=== PATIENT | female | born 1970 | race Caucasian/White ===

== ENCOUNTER 2017-10-02 21:12 | Emergency (ER) | payer SELFPAY ==
[2017-10-02 21:14] VITALS: BP 107/80; PULSE 84; RESP 20; TEMP 36.6; O2SAT 95; BMI 24.8
--- NOTE | 2017-10-02 21:40 | CT_ITS ---
STUDY: CT ABDOMEN AND PELVIS WITH CONTRAST REASON FOR EXAM: Female, 47 years old. RADIATION DOSAGE (If Supplied By Facility): CTDIvol = ( 7.32 ) mGy, DLP = ( 582.62 ) mGycm TECHNIQUE: Transaxial images were obtained from the dome of the diaphragm to the symphysis pubis without oral contrast. 100ML ml of Isovue 300 contrast was administered. Sagittal and coronal images were reconstructed. Individualized dose optimization techniques were used for this CT. COMPARISON: None. FINDINGS: The visualized lung bases are unremarkable. The visualized portions of the heart are within normal limits. Normal liver. Normal gallbladder and extrahepatic biliary system. Normal spleen. Normal pancreas. Normal bilateral adrenal glands. Normal right kidney. Normal left kidney. Normal visualized stomach. Normal small intestine. Normal colon. The appendix is visualized and appears normal. Normal abdominal aorta. Normal inferior vena cava. Normal retroperitoneum. Normal urinary bladder. Normal visualized uterus. Normal abdominal wall. Normal osseous structures. No fractures. CT/Abdomen/Pelvis W IV Cont ONLY IMPRESSION: Normal enhanced CT of the abdomen and pelvis. Electronically Signed: Julian Wilcox MD at 22:41 EDT , Service support ,
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
[2017-10-02 22:10] VITALS: BP 122/84; PULSE 83; RESP 83; O2SAT 97
[2017-10-02 22:54] LABS: Absolute Lymphocyte Count 1.22 X10^3/ul (0.83-4.51); Absolute Neutrophil Count 12.7 X10^3/uL (2.0-7.7); Basophil# 0.04 X10^3/uL; Basophil% 0.3 % (0-1); Eosinophil# 0.11 X10^3/uL; Eosinophils% 0.7 % (0-5); Hematocrit 41.5 % (37-47); Hemoglobin 14.3 g/dl (12.0-15.0); Lymphocyte # 1.22 X10^3/ul (4.0); Lymphocyte % 7.7 % (19-41); Mean Corp Hgb Conc 34.5 g/gl (32-36); Mean Corpuscular Hgb 33.3 pg (27.0-32.0); Mean Corpuscular Volume 96.5 fL (81-99); Mean Platelet Vol. 11.4 fl (6.2-12.0); Monocyte% 10.7 % (0-10); Neutrophil # 12.72 X10^3/uL (2.7-7.7); Neutrophil % 80.1 % (47-70); POSITIVE COUNT NO; POSITIVE DIFFERENTIAL YES; POSITIVE MORPHOLOGY NO; Platelet Count 237 K/mm3 (150-450); RBC Distribution Width CV 14.5 % (11.6-14.6); RBC Distribution Width SD 49.2 fl (35.1-43.9); White Blood Count 15.9 K/mm3 (4.4-11.0)
[2017-10-02 22:55] LABS: Differential Indicated SCAN CRITERIA MET
[2017-10-02 23:13] VITALS: BP 118/94; PULSE 73; RESP 21; O2SAT 100
[2017-10-02 23:17] LABS: Differential Comment SCANNED
[2017-10-02 23:22] LABS: Anion Gap 11 (5-15); BUN 17 mg/dL (7-18); BUN/Creat Ratio 25.8 RATIO (10-20); Calcium,Total 8.4 mg/dL (8.5-10.1); Chloride 100 mmol/L (98-107); Creatinine, Serum 0.66 mg/dL (0.55-1.02); EST Glomerular Filtration Rate 102 mL/min (>60); Est Glom Filt Rate - Afr Amer 124 mL/min (>60); Estimated Creatinine Clearance 99.71 ml/min; Glucose 109 mg/dL (74-106); Potassium 2.9 mmol/L (3.5-5.1); Sodium Level 136 mmol/L (136-145)
[2017-10-03 00:02] VITALS: BP 122/80; PULSE 70; RESP 16; O2SAT 100
[2017-10-03] MEDS: Morphine 4 MG/ML Syringe IV (00:02)
[2017-10-03] MEDS: Ondansetron 4 MG/2 ML Vial IV (00:03)
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
[2017-10-03 01:15] VITALS: BP 97/72; PULSE 77; RESP 12; TEMP 36.6; O2SAT 94
== END 2017-10-03 01:17 | disposition short-term general hospital (02) ==
LOC: ED 23:10
PROVIDERS: Emergency Provider Emergency Medicine; Family Provider Family Medicine; PCP Family Medicine
DX: S12.110A Anterior displaced Type II dens fracture, initial encounter for closed fracture (principal); S06.9X9A Unspecified intracranial injury with loss of consciousness of unspecified duration, initial encounter; R40.2410 Glasgow coma scale score 13-15, unspecified time; E87.6 Hypokalemia; Z72.0 Tobacco use; V43.53XA Car driver injured in collision with pick-up truck in traffic accident, initial encounter; Y93.I9 Activity, other involving external motion; Y92.410 Unspecified street and highway as the place of occurrence of the external cause; Y99.8 Other external cause status
CPT/HCPCS: 36415; 51702; 70450; 71045; 72125; 74177; 80048; 80320; 85025; 96374; 96375; 99285; Q9967; G0480; J2405

== ENCOUNTER 2025-04-05 08:52 | Emergency (ER) | payer MEDICAID, OTHER, SELFPAY ==
[2025-04-05 08:53] VITALS: BP 155/100; PULSE 106; RESP 22; TEMP 36.3; O2SAT 100
[2025-04-05 09:00] VITALS: O2SAT 100; BMI 36.9
--- NOTE | 2025-04-05 09:12 | RAD_ITS ---
PROCEDURE: CHEST PA AND LATERAL 04/05/2025 REASON FOR EXAM: COUGH TECHNIQUE: Procedure Code: RADCXR Modality: DX Procedure: CHEST PA AND LATERAL COMPARISON: None. FINDINGS: LUNGS AND PLEURA: No focal airspace consolidation. Mild biapical pleural thickening. No pleural effusion or pneumothorax. HEART AND MEDIASTINUM: The heart size and mediastinal contours are normal. BONES: No acute osseous abnormality. Old left posterior rib fractures. RAD/Chest PA and Lateral IMPRESSION: NO ACUTE FINDINGS. Reading Location: [id number]
--- NOTE | 2025-04-05 09:12 | EKG12_ITS ---
Test Reason : Blood Pressure : */* mmHG Vent. Rate : 83 BPM Atrial Rate : 83 BPM P-R Int : 138 ms QRS Dur : 80 ms QT Int : 358 ms P-R-T Axes : 60 64 51 degrees QTcB Int : 420 ms Normal sinus rhythm Normal ECG Confirmed by Dustin Goel ([id number]), ehs specialist CARLOS LOCKHART ([id number]) on 04/06/2025 11:00:56 AM Also confirmed by Dustin Goel ([id number]), ehs specialist CARLOS LOCKHART ([id number]) on 04/07/2025 11:10:40 AM Referred By: Confirmed By: Dustin oGel
[2025-04-05 09:20] VITALS: PULSE 84; RESP 16
[2025-04-05] MEDS: Albuterol 2.5 MG/3 ML VIAL.NEB. INHALATION (09:20)
--- NOTE | 2025-04-05 09:25 | ED.VIS.DYS ---
HPI History of Present Illness Chief Complaint: Cough Narrative Narrative: Chief complaint and HPI: 54-year-old female with past medical history of tobacco abuse presents for evaluation of URI type symptoms. Patient states for the past 3 days she has had a chest cold. She states she has had cough and congestion. No history of COPD or asthma that she knows of. She denies any fever, chills, shortness of breath, chest pain, abdominal pain, nausea, vomiting. Review of systems: See HPI Medications: As listed on the chart Allergies: As listed on the chart PFSH: Per chart Vital signs: As listed on the chart. Reviewed. Physical exam: Gen: A&O x3, NAD Head: Normocephalic, atraumatic Eyes: No sclera icterus, conjunctiva clear, PERRL ENT: TMs clear BL, moist mucous membranes, posterior oropharynx unremarkable, uvula midline, tonsils not enlarged, no tonsillar exudates Neck: Trachea midline, No JVD, Full ROM, No meningismus CV: tachycardic, regular rhythm, no murmurs, no peripheral edema Resp: Lungs CTA BL, with few expiratory wheezes, cough + GI: Abd soft, non-distended, non-tender, no r/r/g Musc: Full ROM, no deformity Skin: Warm, dry, no rash Neuro: Alert, oriented, grossly intact, sensation intact Psych: Cooperative, appropriate mood and affect [facility] Home Medications ?Medication ?Instructions ?Recorded ?Last Taken ?Type albuterol sulfate 90 mcg/actuation 2 puff inhalation Q4H PRN PRN 04/05/25 Unknown Rx aerosol inhaler (Ventolin HFA) Wheezing ##1 prednisone 20 mg tablet 40 mg (2 x 20 mg) PO DAILY 5 days 04/05/25 Unknown Rx #10 tabs Allergy/AdvReac Type Severity Reaction Status Date / Time No Known Allergies Allergy Verified 04/05/25 08:53 Social History Smoking Status: Current every day smoker tobacco type: e-cigarettes EXAM Physical Exam Const Vital Signs: 04/05/25 08:53 04/05/25 09:00 04/05/25 09:20 Temperature 97.3 F L Temperature Source Temporal Pulse Rate 106 H 84 Respiratory Rate 22 H 16 Respiratory Effort Normal Short of Breath Respiratory Depth Normal Respiratory Pattern Normal Normal Blood Pressure 155/100 H Blood Pressure Mean 118 Pulse Ox 100 Oxygen Delivery Method Room Air Room Air 04/05/25 11:09 04/05/25 12:47 Temperature 97.2 F L Temperature Source Pulse Rate 88 80 Respiratory Rate 16 18 Respiratory Effort Respiratory Depth Respiratory Pattern Blood Pressure 123/80 H 134/75 H Blood Pressure Mean 94 94 Pulse Ox 99 98 Oxygen Delivery Method Room Air MDM MDM MDM Narrative Medical decision making narrative: 54-year-old female with past medical history of tobacco abuse presents for evaluation of URI type symptoms. Patient states for the past 3 days she has had a chest cold. She states she has had cough and congestion. No history of COPD or asthma that she knows of. Differential diagnosis includes but is not limited to viral illness, bronchitis, pneumonia, undiagnosed COPD with an exacerbation, electrolyte abnormality. NS bolus, DuoNeb, albuterol, prednisone ordered for symptoms. Basic labs will be obtained including viral panel. EKG and chest x-ray reviewed. No pneumonia. CBC unremarkable without leukocytosis or anemia. BMP unremarkable. On reevaluation, patient's wheezing has improved. Her vitals have improved. Patient is negative for COVID, flu, RSV. Patient's symptoms are likely secondary to viral illness. Will give prednisone and albuterol inhaler for wheezing. Follow-up with primary care physician. She vermin understand the plan. Patient discharged. EKG: Interpreted by me/EM physician: EKG shows normal sinus rhythm without any acute ischemic changes heart rate 83 Diagnostic: Interpreted by me/EM physician: Chest x-ray without consolidation, pneumothorax, cardiomegaly, effusion. Radiology in agreement. Old left posterior rib fractures per radiology. Impression: 1. Viral syndrome with wheezing Lab Data Labs: Laboratory Results - last 24 hr 04/05/25 09:35 WBC 9.3 RBC 4.90 Hgb 14.4 Hct 45.2 MCV 92.2 MCH 29.4 MCHC 31.9 L RDW Std Deviation 44.2 H RDW Coeff of [place] 13.1 Plt Count 256 MPV 12.0 Immature Gran % (Auto) 0.600 Neut % (Auto) 56.6 Lymph % (Auto) 26.4 [place] % (Auto) 12.8 H Eos % (Auto) 3.0 Baso % (Auto) 0.6 Absolute Neuts (auto) 5.3 Absolute Lymphs (auto) 2.47 Nucleated RBC % 0 Sodium 142 Potassium 4.8 Chloride 105 Carbon Dioxide 26.8 Anion Gap 10 BUN 19 Creatinine 0.78 Estim Creat Clear Calc 104.97 Est GFR (MDRD) Non-Af 90 BUN/Creatinine Ratio 24.3 H Glucose 119 H Calcium 9.4 Radiography Diagnostic Testing: Clinical Impression(s) from Imaging Studies Chest X-Ray 04/05/25 09:12 IMPRESSION: NO ACUTE FINDINGS. Reading Location: [id number][NOTE 3] Discharge Plan Triage Chief Complaint: Cough ED Provider: Alex Cadet Dx/Rx/DC Orders Instructions: ED Viral Syndrome (Adult) Prescriptions: New prednisone 20 mg tablet 40 mg PO DAILY 5 Days Qty: 10 0RF albuterol sulfate [Ventolin HFA] 90 mcg/actuation HFA aerosol inhaler 2 puff inhalation Q4H PRN PRN (Reason: Wheezing) Qty: 1 0RF Stand Alone Forms: ED Work / School Excuse Primary Care Provider: Care Physician,No Primary Referrals: Jairo Marquez MD [Med Staff - Active Staff, Family Practice] - 3-5 Days Activity Restrictions/Additional Instructions: Over the counter medication for symptom control. Albuterol as needed for wheezing. Follow-up with your primary care physician. If you do not have one follow-up with the one listed above. Print Language: Greenlandic Disposition Disposition: Home, Self Care Discharge Date/Time: 04/05/25 12:47
[2025-04-05] MEDS: 0.9% Normal Saline (500mL Bag) 500 ML 999 ML IV (09:28)
[2025-04-05 09:46] LABS: Hematocrit 45.2 % (37-47); Hemoglobin 14.4 g/dL (12.0-15.0); Immature Granulocytes Count 0.060 X10^3/uL (0.0-0.0); Mean Corp Hgb Conc 31.9 g/dL (32-36); Mean Corpuscular Volume 92.2 fL (81-99); Mean Platelet Vol. 12.0 fl (6.2-12.0); NRBC Flagged by Analyzer 0 % (0-5); Platelet Count 256 K/mm3 (150-450); RBC Distribution Width CV 13.1 % (11.6-14.6); RBC Distribution Width SD 44.2 fl (35.1-43.9); Red Blood Count 4.90 M/mm3 (4.2-5.4); White Blood Count 9.3 K/mm3 (4.4-11.0)
[2025-04-05 10:10] LABS: Anion Gap 10 (5-15); BUN 19 mg/dL (4-19); BUN/Creat Ratio 24.3 RATIO (10-20); Calcium,Total 9.4 mg/dL (7.6-11.0); Carbon Dioxide 26.8 mmol/L (21.0-32.0); Chloride 105 mmol/L (98-108); Estimated Creatinine Clearance 104.97 ml/min (50-250); Glucose 119 mg/dL (70-99); Potassium 4.8 mmol/L (3.3-5.1)
[2025-04-05 11:09] VITALS: BP 123/80; PULSE 88; RESP 16; O2SAT 99
[2025-04-05 12:47] VITALS: BP 134/75; PULSE 80; RESP 18; TEMP 36.2; O2SAT 98
--- OUTSIDE RECORDS SUMMARY | 2025-04-05 13:15 | XMS RPT_ITS | CCD ---
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 HISTORY: Reason for Exam: cough FINDINGS: Cardiomediastinal contours are within normal limits. No focal consolidation or pulmonary edema. No pleural effusion or visible pneumothorax. Degenerative changes of the visible spine. IMPRESSION: No acute cardiopulmonary process. I have personally reviewed the images of this examination and agree with the resident's findings and interpretation. Interpreted by: Kal Strauss MD Preliminary Report By: Uday Mendez Electronically signed By Kal Strauss MD Dictated Date: 04/04/2023 4:40:31 PM Prelim Date: 04/04/2023 4:41:03 PM Sign Date: 04/04/2023 5:13:30 PM Ordering Provider: CHERYLE BARBA Normal [facility] ([place]) [id number] 04-02-2023 SARS-CoV-2 (COVID-19) RNA DIVINE+probe Ql (Unsp spec) Positive Abnormal Negative [facility] ([place]) Comment on above: Performed By: #### F PHILLIP COVD19 #### [address] [address] SARS-CoV-2 (COVID-19) RNA DIVINE+probe Ql (Unsp spec) Normal [facility] ([place]) Comment on above: Result Comment: Posi tive results are indicative of the presence of SARS-CoV-2 RNA; clinical correlation with patient history and other diagnostic information is necessary to determine patient infection status. Positive results do not rule out bacterial infection or co-infection with other viruses. The agent detected may not be the definite cause of disease. Laboratories within the [facility] and its territories are required to report all positive results to the appropriate public health authorities. Detection of analyte target(s) does not imply that the corresponding virus(es) are infectious or are the causative agents for clinical symptoms. There is a risk of false positive values resulting from cross-contamination by target organisms, their nucleic acids or amplified product, or from non-specific signals in the assay. HidInImage SARS-CoV-2 Assay is a Real-Time reverse-transcriptase polymerase chain reaction (RT-PCR) based qualitative in vitro diagnostic test intended for the qualitative detection of nucleic acid from the SARS-CoV-2 in nasopharyngeal swab specimens collected from individuals suspected of COVID-19 by their healthcare provider. Testing is limited to laboratories certified under the Clinical Laboratory Improvement Amendments of 1988 (CLIA), 42 U.S.C. ?263a, to perform moderate and high complexity tests. COVID-19 Int Performed By: #### Dawson PHILLIP COVD19 #### [address] [address] FLURSVon 04-02-2023 Flu A PCR (AO) Negative Normal Negative [facility] ([place]) Comment on above: Result Comment: Posi tive Results: Positive Flu A/B or RSV for by PCR. Positive test results do not rule out bacterial infection or co-infection with other pathogens. Test results should be interpreted in conjunction with other laboratory and clinical data. Negative Results: Negative for by PCR. Negative test results do not preclude influenza virus or RSV infection and should not be used as the sole basis for diagnosis, treatment, or other management decisions. There is a risk of false negative RSV results when at low concentration and in the presence of co-infection with high concentration of influenza A. Invalid Results: An Invalid result (INV) was obtained. The test was repeated with similar results. REPEAT COLLECTION AND TESTING IS RECOMMENDED. The Mundo Flu A/B & RSV Assay is a real-time polymerase chain reaction (PCR) based qualitative in vitro diagnostic test for the direct detection and differentiation of influenza A virus, influenza B virus, and respiratory syncytial virus (RSV) nucleic acid in nasopharyngeal swab (BROADCAST METEOROLOGIST) specimens from patients with signs and symptoms of respiratory infection in conjunction with clinical and laboratory findings. The test is intended for use as an aid in the differential diagnosis of influenza A virus, influenza B virus, and RSV in humans and is not intended to detect influenza C. Performed By: #### B MP, CBC, ANEU, GFR, BRYANT, W, DIFF, MORPH #### [address] [address] Flu B PCR (AO) Negative Normal Negative [facility] ([place]) Comment on above: Result Comment: Posi tive Results: Positive Flu A/B or RSV for by PCR. Positive test results do not rule out bacterial infection or co-infection with other pathogens. Test results should be interpreted in conjunction with other laboratory and clinical data. Negative Results: Negative for by PCR. Negative test results do not preclude influenza virus or RSV infection and should not be used as the sole basis for diagnosis, treatment, or other management decisions. There is a risk of false negative RSV results when at low concentration and in the presence of co-infection with high concentration of influenza A. Invalid Results: An Invalid result (INV) was obtained. The test was repeated with similar results. REPEAT COLLECTION AND TESTING IS RECOMMENDED. The Mundo Flu A/B & RSV Assay is a real-time polymerase chain reaction (PCR) based qualitative in vitro diagnostic test for the direct detection and differentiation of influenza A virus, influenza B virus, and respiratory syncytial virus (RSV) nucleic acid in nasopharyngeal swab (BROADCAST METEOROLOGIST) specimens from patients with signs and symptoms of respiratory infection in conjunction with clinical and laboratory findings. The test is intended for use as an aid in the differential diagnosis of influenza A virus, influenza B virus, and RSV in humans and is not intended to detect influenza C. Performed By: #### B MP, CBC, ANEU, GFR, MD BRYANTW, DIFF, MORPH #### [address] [place], [place] [address] RSV PCR (AO) Negative Normal Negative [facility] ([place]) Comment on above: Result Comment: Posi tive Results: Positive Flu A/B or RSV for by PCR. Positive test results do not rule out bacterial infection or co-infection with other pathogens. Test results should be interpreted in conjunction with other laboratory and clinical data. Negative Results: Negative for by PCR. Negative test results do not preclude influenza virus or RSV infection and should not be used as the sole basis for diagnosis, treatment, or other management decisions. There is a risk of false negative RSV results when at low concentration and in the presence of co-infection with high concentration of influenza A. Invalid Results: An Invalid result (INV) was obtained. The test was repeated with similar results. REPEAT COLLECTION AND TESTING IS RECOMMENDED. The [employer] Flu A/B & RSV Assay is a real-time polymerase chain reaction (PCR) based qualitative in vitro diagnostic test for the direct detection and differentiation of influenza A virus, influenza B virus, and respiratory syncytial virus (RSV) nucleic acid in nasopharyngeal swab (BROADCAST METEOROLOGIST) specimens from patients with signs and symptoms of respiratory infection in conjunction with clinical and laboratory findings. The test is intended for use as an aid in the differential diagnosis of influenza A virus, influenza B virus, and RSV in humans and is not intended to detect influenza C. Performed By: #### B MP, CBC, ANEU, GFR, ADIFF, MDW, DIFF, MORPH #### [address] [place], [place] [address] LABORATORYOrdered By: Jenny Ruvalcaba on 04-02-2023 FLUAV RNA DIVINE+probe Ql (Upper resp) Negative 1 (04/02/23 8:01 PM) Normal Negative AO Auto Urine SS Comment on above: Interpretive Data: P ositive Results: Positive Flu A/B or RSV for by PCR. Positive test results do not rule out bacterial infection or co-infection with other pathogens. Test results should be interpreted in conjunction with other laboratory and clinical data. Negative Results: Negative for by PCR. Negative test results do not preclude influenza virus or RSV infection and should not be used as the sole basis for diagnosis, treatment, or other management decisions. There is a risk of false negative RSV results when at low concentration and in the presence of co-infection with high concentration of influenza A. Invalid Results: An Invalid result (INV) was obtained. The test was repeated with similar results. REPEAT COLLECTION AND TESTING IS RECOMMENDED. The Mundo Flu A/B & RSV Assay is a real-time polymerase chain reaction (PCR) based qualitative in vitro diagnostic test for the direct detection and differentiation of influenza A virus, influenza B virus, and respiratory syncytial virus (RSV) nucleic acid in nasopharyngeal swab (BROADCAST METEOROLOGIST) specimens from patients with signs and symptoms of respiratory infection in conjunction with clinical and laboratory findings. The test is intended for use as an aid in the differential diagnosis of influenza A virus, influenza B virus, and RSV in humans and is not intended to detect influenza C. FLUBV RNA DIVINE+probe Ql (Upper resp) Negative 2 (04/02/23 8:01 PM) Normal Negative AO Auto Urine SS Comment on above: Interpretive Data: P ositive Results: Positive Flu A/B or RSV for by PCR. Positive test results do not rule out bacterial infection or co-infection with other pathogens. Test results should be interpreted in conjunction with other laboratory and clinical data. Negative Results: Negative for by PCR. Negative test results do not preclude influenza virus or RSV infection and should not be used as the sole basis for diagnosis, treatment, or other management decisions. There is a risk of false negative RSV results when at low concentration and in the presence of co-infection with high concentration of influenza A. Invalid Results: An Invalid result (INV) was obtained. The test was repeated with similar results. REPEAT COLLECTION AND TESTING IS RECOMMENDED. The [employer] Flu A/B & RSV Assay is a real-time polymerase chain reaction (PCR) based qualitative in vitro diagnostic test for the direct detection and differentiation of influenza A virus, influenza B virus, and respiratory syncytial virus (RSV) nucleic acid in nasopharyngeal swab (BROADCAST METEOROLOGIST) specimens from patients with signs and symptoms of respiratory infection in conjunction with clinical and laboratory findings. The test is intended for use as an aid in the differential diagnosis of influenza A virus, influenza B virus, and RSV in humans and is not intended to detect influenza C. RSV RNA DIVINE+probe Ql (Upper resp) Negative 3 (04/02/23 8:01 PM) Normal Negative AO Auto Urine SS Comment on above: Interpretive Data: P ositive Results: Positive Flu A/B or RSV for by PCR. Positive test results do not rule out bacterial infection or co-infection with other pathogens. Test results should be interpreted in conjunction with other laboratory and clinical data. Negative Results: Negative for by PCR. Negative test results do not preclude influenza virus or RSV infection and should not be used as the sole basis for diagnosis, treatment, or other management decisions. There is a risk of false negative RSV results when at low concentration and in the presence of co-infection with high concentration of influenza A. Invalid Results: An Invalid result (INV) was obtained. The test was repeated with similar results. REPEAT COLLECTION AND TESTING IS RECOMMENDED. The [employer] Flu A/B & RSV Assay is a real-time polymerase chain reaction (PCR) based qualitative in vitro diagnostic test for the direct detection and differentiation of influenza A virus, influenza B virus, and respiratory syncytial virus (RSV) nucleic acid in nasopharyngeal swab (BROADCAST METEOROLOGIST) specimens from patients with signs and symptoms of respiratory infection in conjunction with clinical and laboratory findings. The test is intended for use as an aid in the differential diagnosis of influenza A virus, influenza B virus, and RSV in humans and is not intended to detect influenza C. SARS-CoV-2 (COVID-19) RNA DIVINE+probe Ql (Resp) Positive results are indicative of the presence of SARS-CoV-2 RNA; clinical correlation with patient history and other diagnostic information is necessary to determine patient infection status. Positive results do not rule out bacterial infection or co-infection with other viruses. The agent detected may not be the definite cause of disease. Laboratories within the [facility] and its territories are required to report all positive results to the appropriate public health authorities.Detection of analyte target(s) does not imply that the corresponding virus(es) are infectious or are the causative agents for clinical symptoms.There is a risk of false positive values resulting from cross-contamination by target organisms, their nucleic acids or amplified product, or from non-specific signals in the assay.HidInImage SARS-CoV-2 Assay is a Real-Time reverse-transcriptase polymerase chain reaction (RT-PCR) based qualitative in vitro diagnostic test intended for the qualitative detection of nucleic acid from the SARS-CoV-2 in nasopharyngeal swab specimens collected from individuals suspected of COVID-19 by their healthcare provider. Testing is limited to laboratories certified under the Clinical Laboratory Improvement Amendments of 1988 (CLIA), 42 U.S.C. 263a, to perform moderate and high complexity tests. Normal AO Auto Urine SS Office Visit Reporton 11-07- 2023 Office Visit Report [facility] [address] [place] [address] OFFICE VISIT Date of Service: 02/07/23 MR#: [id number] Acct: [id number] Patient: TARSHA BYERS Rep #: [id number] : 1970 Provider: RIAN Bautista Age/Sex: 52/F Location: [facility] Status: Signed Employer Purchased Covid Test Note: Patient here today for Covid Testing, requested by their Employer. Assessment and Plan Assessment and Plan Orders: Orders POC Cepheid Covid, FluAB, RSV 02/07/23 02/20/23 0611 Date Ash MODI Cosigner Signature: Date (if applicable) CC: Normal [facility] Hepatitis B Surface Antibody on 01-04-2023 HEP B Surf Ab Reactive Normal [facility] Comment on above: Result Comment: Non Reactive: Inconsistent with immunity less than <10 mIU/mL Reactive: Consistent with immunity greater than or equal to 10 mIU/mL Performed By: #### L 3890.6200 #### [facility] [address] [place], [address] Mumps Antibody,IgGon 023 MUMPS Ab, IgG 163.0 AU/mL Normal Immune >10.9 [facility] Comment on above: Result Comment: Nega tive <9.0 Equivocal 9.0 - 10.9 Positive >10.9 A positive result generally indicates past exposure to Mumps virus or previous vaccination. Performed By: #### L 509.4015, L3100.3400, L3400.1750, L3100.0539 #### [facility] [address] [place], [address] [facility] EMP Rubeola Titeron 06-1 RUBEOLA Ab, IgG 128.0 AU/mL Normal Immune >16.4 [facility] Comment on above: Result Comment: Nega tive <13.5 Equivocal 13.5 - 16.4 Positive >16.4 Presence of antibodies to Rubeola is presumptive evidence of immunity except when acute infection is suspected. Performed at: [facility] [id number] Drill Operator Pneumatic: Anjel Roach PhD, Phone: [phone] Performed By: #### L 509.4015, L3100.3400, L3400.1750, L3100.0539 #### [facility] [address] [place], [address] CBC, Employeeon 09-21-2022 Absolute Neut Normal 2.0-7.7 [facility] Comment on above: Result Comment: ORDE RED WRONG Performed By: #### L 500.2900, L400.0100, L100.0200 #### [facility] [address] [place], [address] HCT Normal 37-47 [facility] Comment on above: Result Comment: ORDE RED WRONG Performed By: #### L 500.2900, L400.0100, L100.0200 #### [facility] [address] [place], [address] HGB Normal 12.0-15.0 [facility] Comment on above: Result Comment: ORDE RED WRONG Performed By: #### L 500.2900, L400.0100, L100.0200 #### [facility] [address] [place], [address] MCH Normal 27.0-32.0 [facility] Comment on above: Result Comment: ORDE RED WRONG Performed By: #### L 500.2900, L400.0100, L100.0200 #### [facility] [address] [place], [address] MCHC Normal 32-36 [facility] Comment on above: Result Comment: ORDE RED WRONG Performed By: #### L 500.2900, L400.0100, L100.0200 #### [facility] [address] [place], [address] MCV Normal 81-99 [facility] Comment on above: Result Comment: ORDE RED WRONG Performed By: #### L 500.2900, L400.0100, L100.0200 #### [facility] [address] [place], [address] NEUT% Normal 47-70 [facility] Comment on above: Result Comment: ORDE RED WRONG Performed By: #### L 500.2900, L400.0100, L100.0200 #### [facility] [address] [place], [address] NRBC # Normal 0-5 [facility] Comment on above: Result Comment: ORDE RED WRONG Performed By: #### L 500.2900, L400.0100, L100.0200 #### [facility] [address] [place], [address] PLT Normal 150-450 [facility] Comment on above: Result Comment: ORDE RED WRONG Performed By: #### L 500.2900, L400.0100, L100.0200 #### [facility] [address] [place], [address] RBC Normal 4.2-5.4 [facility] Comment on above: Result Comment: ORDE RED WRONG Performed By: #### L 500.2900, L400.0100, L100.0200 #### [facility] [address] [place], [address] RDW CV Normal 11.6-14.6 [facility] Comment on above: Result Comment: ORDE RED WRONG Performed By: #### L 500.2900, L400.0100, L100.0200 #### [facility] [address] [place], [address] RDW SD Normal 35.1-43.9 [facility] Comment on above: Result Comment: ORDE RED WRONG Performed By: #### L 500.2900, L400.0100, L100.0200 #### [facility] [address] [place], [address] WBC Normal 4.4-11.0 [facility] Comment on above: Result Comment: ORDE RED WRONG Performed By: #### L 500.2900, L400.0100, L100.0200 #### [facility] [address] [place], [address] Employee Profileon 3 HDL Normal [facility] Comment on above: Result Comment: ORDE RED WRONG The drugs N-Acetylcysteine and Metamizole may falsely depress this assay. Performed By: #### L 500.2900, L400.0100, L100.0200 #### [facility] [address] [place], [address] TRIG Normal [facility] Comment on above: Result Comment: ORDE RED WRONG The drugs N-Acetylcysteine and Metamizole may falsely depress this assay. Performed By: #### L 500.2900, L400.0100, L100.0200 #### [facility] [address] [place], [address] URIC Normal 2.6-6.0 [facility] Comment on above: Result Comment: ORDE RED WRONG The drugs N-Acetylcysteine and Metamizole may falsely depress this assay. Performed By: #### L 500.2900, L400.0100, L100.0200 #### [facility] [address] [place], [address] ALB Normal 3.2-5.0 [facility] Comment on above: Result Comment: ORDE RED WRONG Performed By: #### L 500.2900, L400.0100, L100.0200 #### [facility] [address] [place], [address] ALK P Normal 45-117 [facility] Comment on above: Result Comment: ORDE RED WRONG Performed By: #### L 500.2900, L400.0100, L100.0200 #### [facility] [address] [place], [address] ALT Normal 13-56 [facility] Comment on above: Result Comment: ORDE RED WRONG Performed By: #### L 500.2900, L400.0100, L100.0200 #### [facility] [address] [place], [address] AST Normal 15-37 [facility] Comment on above: Result Comment: ORDE RED WRONG Performed By: #### L 500.2900, L400.0100, L100.0200 #### [facility] [address] [place], [address] BUN Normal 7-18 [facility] Comment on above: Result Comment: ORDE RED WRONG Performed By: #### L 500.2900, L400.0100, L100.0200 #### [facility] [address] [place], [address] BUN/CRE Normal 10-20 [facility] Comment on above: Result Comment: ORDE RED WRONG Performed By: #### L 500.2900, L400.0100, L100.0200 #### [facility] [address] [place], [address] CA,Total Normal 8.5-10.1 [facility] Comment on above: Result Comment: ORDE RED WRONG Performed By: #### L 500.2900, L400.0100, L100.0200 #### [facility] [address] [place], [address] CHOL Normal 200 [facility] Comment on above: Result Comment: ORDE RED WRONG Performed By: #### L 500.2900, L400.0100, L100.0200 #### [facility] [address] [place], [address] CHOL:HDL Normal [facility] Comment on above: Result Comment: ORDE RED WRONG Performed By: #### L 500.2900, L400.0100, L100.0200 #### [facility] [address] [place], [address] CL Normal 98-107 [facility] Comment on above: Result Comment: ORDE RED WRONG Performed By: #### L 500.2900, L400.0100, L100.0200 #### [facility] [address] [place], [address] CO2 Normal 21.0-32.0 [facility] Comment on above: Result Comment: ORDE RED WRONG Performed By: #### L 500.2900, L400.0100, L100.0200 #### [facility] Laboratory [address] [place], [address] CREAT,SERUM Normal 0.55-1.02 [facility] Comment on above: Result Comment: ORDE RED WRONG Performed By: #### L 500.2900, L400.0100, L100.0200 #### [facility] Laboratory [address] [place], [address] D BILI Normal 0.00-0.30 [facility] Comment on above: Result Comment: ORDE RED WRONG Performed By: #### L 500.2900, L400.0100, L100.0200 #### [facility] Laboratory [address] [place], [address] EST GFR Normal >60 [facility] Comment on above: Result Comment: ORDE RED WRONG Performed By: #### L 500.2900, L400.0100, L100.0200 #### [facility] Laboratory [address] [place], [address] EST GFR - AA Normal >60 [facility] Comment on above: Result Comment: ORDE RED WRONG Performed By: #### L 500.2900, L400.0100, L100.0200 #### [facility] Laboratory [address] [place], [address] GAP Normal 5-15 [facility] Comment on above: Result Comment: ORDE RED WRONG Performed By: #### L 500.2900, L400.0100, L100.0200 #### [facility] Laboratory [address] [place], [address] GLU Normal 74-106 [facility] Comment on above: Result Comment: ORDE RED WRONG Performed By: #### L 500.2900, L400.0100, L100.0200 #### [facility] Laboratory [address] [place], [address] LDH Normal 84-246 [facility] Comment on above: Result Comment: ORDE RED WRONG Performed By: #### L 500.2900, L400.0100, L100.0200 #### [facility] Laboratory [address] [place], [address] LDL Normal 0-130 [facility] Comment on above: Result Comment: ORDE RED WRONG Performed By: #### L 500.2900, L400.0100, L100.0200 #### [facility] Laboratory [address] [place], [address] PHOS Normal 2.5-4.9 [facility] Comment on above: Result Comment: ORDE RED WRONG Performed By: #### L 500.2900, L400.0100, L100.0200 #### [facility] Laboratory [address] [place], [address] Potassium Normal 3.5-5.1 [facility] Comment on above: Result Comment: ORDE RED WRONG Performed By: #### L 500.2900, L400.0100, L100.0200 #### [facility] Laboratory [address] [place], [address] T BILI Normal 0.20-1.00 [facility] Comment on above: Result Comment: ORDE RED WRONG Performed By: #### L 500.2900, L400.0100, L100.0200 #### [facility] Laboratory [address] [place], [address] T PROT Normal 6.4-8.2 [facility] Comment on above: Result Comment: ORDE RED WRONG Performed By: #### L 500.2900, L400.0100, L100.0200 #### [facility] Laboratory [address] [place], [address] VLDL Normal 5-40 [facility] Comment on above: Result Comment: ORDE RED WRONG Performed By: #### L 500.2900, L400.0100, L100.0200 #### [facility] Laboratory [address] [place], [address] Employee Profile Normal 136-145 [facility] Comment on above: Result Comment: ORDE RED WRONG Performed By: #### L 500.2900, L400.0100, L100.0200 #### [facility] Laboratory [address] [place], [address] Hepatitis B Surf AB - EMPon 09-21-2022 HEP B Surf Ab Non-Reactive Normal [facility] Comment on above: Result Comment: Non Reactive: Inconsistent with immunity less than <10 mIU/mL Reactive: Consistent with immunity greater than or equal to 10 mIU/mL Performed By: #### L 509.4015, L3100.3400, L3400.1750, L3100.0539 #### [facility] Laboratory [address] [place], [address] Rubella IgG [facility] EM[employer]OY[employer]on 0 09-21-2022 Rubella IgG Reactive Normal Nonreactive [facility] Comment on above: Result Comment: Anti body Results Interpretation of Immune Status Non Reactive Presumed Non-Immune Equivocal Equivocal Reactive Presumed Immune Performed By: #### L 509.4015, L3100.3400, L3400.1750, L3100.0539 #### [facility] Laboratory [address] [place], [address] Urinalysis, Employeeon 09-21 BILIRUBIN URINE Normal Negative [facility] Comment on above: Result Comment: ORDE RED WRONG Performed By: #### L 500.2900, L400.0100, L100.0200 #### [facility] Laboratory [address] [place], [address] Clarity (U) Normal Clear [facility] Comment on above: Result Comment: ORDE RED WRONG Performed By: #### L 500.2900, L400.0100, L100.0200 #### [facility] Laboratory [address] [place], [address] Color (U) Normal Yellow [facility] Comment on above: Result Comment: ORDE RED WRONG Performed By: #### L 500.2900, L400.0100, L100.0200 #### [facility] Laboratory [address] [place], [address] GLUCOSE, UR Normal Normal [facility] Comment on above: Result Comment: ORDE RED WRONG Performed By: #### L 500.2900, L400.0100, L100.0200 #### [facility] Laboratory [address] [place], [address] KETONE UR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 patient was alert and appeared to be in no acute distress with stable vitalsigns. Skin was warm, dry and intact. Head is normocephalic, atraumatic. Eyes: Pupilsare equal and reactive to light with normal conjunctivae. ENT: The oral mucosa is moist.Heart is a regular rate and rhythm. GCS was 15. No signs of basilar skull fracture.Lungs were clear. She did have no pain at the elbow. No swelling at the elbow. Normalrange of motion. She had decreased range of motion at the wrist with anatomical snuffboxtenderness. There is no obvious deformity. She had some mild diffuse tenderness in thehand as well with no swelling. She had normal distal sensation, capillary refill. She hadgrip strength decreased due to pain in the hand and the wrist on the left side.EMERGENCY DEPARTMENT CLINICAL COURSEThe patient remained hemodynamically stable, nonseptic and nontoxic throughout the entireED course. We did get a left wrist and left hand x-ray. This did not show any acutefracture. Because of the patient's anatomical snuffbox tenderness, I placed the patient sujey thumb spica splint. At this point I am going to give her prescription for [place] to gohome with. She is to follow up with primary care. Return if symptoms worsen or if newsymptoms develop.IMPRESSIONLeft wrist sprain.DISPOSITIONThe patient will be discharged home. 08/31/17 1046 JOYCE ROBLEDO D.O.cc: JOYCE VERDIN D.O. << Signature on File>> Reported By: JOYCE VERDIN D.O. Signed By: JOYCE VERDIN D.O.Tests performed at:[address] [phone] Normal [facility] HAND 3 VIEWSon 08-23-2017 HAND [address] [address]Nsgx: TARSHA BYERS SPhys: JOYCE VERDIN D.O.: [birth year] Age: 47 Sex: FAcct: [id number] Loc: EDExam Date: 08/23/17 Status: REG ERRadiology No.: [id number] Number: [id number] # Type/[id number] RAD / HAND 3 VIEWS LTPROCEDURE: Left and radiographs.HISTORY: Pain after injury.COMPARISON: NoneFINDINGS: 3 views obtained. No visible fracture or dislocation. The jointspaces are maintained. No bony lesions are identified. Soft tissues areunremarkable.IMPRESSI ON:No visible fracture or dislocation.Professional interpretation provided by [facility] [place] [address].Thank you for this referral.< >Reported By: EPYTON FONTENOT M.D.Signed In NovaPro By: PEYTON FONTENOT M.D. << Signature on File>> Reported By: PEYTON FONTENOT M.D. Signed By: PEYTON FONTENOT M.D.Tests performed at:[address] [phone] Normal [facility] WRIST 3+VIEWSon 08-23-2017 WRIST 3+VIEWS [address] [address]Abhf: TARSHA BYERS SPhys: JOYCE VERDIN D.O.: [birth year] Age: 47 Sex: FAcct: [id number] Loc: EDExam Date: 08/23/17 Status: REG ERRadiology No.: [id number] Number: [id number] # Type/[id number] RAD / WRIST 3+VIEWS LTPROCEDURE: Left wrist radiographs.HISTORY: Pain after injury.COMPARISON: NoneFINDINGS: 4 views obtained. No visible fracture or dislocation. The jointspaces are maintained. No bony lesions are identified. Soft tissues areunremarkable.IMPRESSI ON:No visible fracture or dislocation.Professional interpretation provided by [facility] [place] [address].Thank you for this referral. A< >Reported By: PEYTON FONTENOT M.D.Signed In NovaPro By: PEYTON FONTENOT M.D. << Signature on File>> Reported By: PEYTON FONTENOT M.D. Signed By: PEYTON FONTENOT M.D.Tests performed at:[address] [phone] Normal [facility] Vital Signs Date Time Vital Sign Value Performing Clinician Faci beatriz 04-02-2023 18:51-0500 Body temperature 99.68 [degF] JOSUE NICHOLS MD [facility] 04-02-2023 18:51-0500 Body weight 93 kg JOSUE NICHOLS MD [facility] 04-02-2023 18:51-0500 Diastolic Blood Pressure Non-Invasive 80 mm[Hg] JOSUE NICHOLS MD [facility] 04-02-2023 18:51-0500 Heart rate 92 /min JOSUE NICHOLS MD [facility] 04-02-2023 18:51-0500 Respiratory rate 16 /min JOSUE NICHOLS MD [facility] 04-02-2023 18:51-0500 Systolic Blood Pressure Non-Invasive 120 mm[Hg] JOSUE NICHOLS MD [facility] Encounters Encounter Date Encounter Type Care Provider Facility Start: 05-04-2024 End: 05-04-2024 ambulatory EMIL PARKER [facility] Start: 01-31-2024 End: 01-31-2024 ambulatory [facility] [place] Start: 01-31-2024 End: 01-31-2024 Encounter for general adult medical examination without abnormal findings [facility] [place] Start: 04-04-2023 End: 04-04-2023 Emergency department patient visit DR CHERYLE BARBA MD Facility:[facility] Start: 04-02-2023 End: 04-02-2023 Emergency department patient visit JOSUE NICHOLS MD [facility] Start: 02-07-2023 End: 02-07-2023 ambulatory Ash MODI Facility:[facility] Start: 01-04-2023 ambulatory No Primary Car e Physician Facility:[facility] Start: 09-21-2022 ambulatory Jairo Marquez Facility:[facility] Start: 02-21-2022 ambulatory Smith POE RN.CASSANDRA, GLYNN Work Phone: Internal Medicine [facility] Start: 02-10-2022 Refill Smtih POE RN.CASSANDRA, GLYNN Work Phone: [facility] [place] Comment on above: Refill Request Start: 08-10-2020 End: 08-10-2020 Subsequent hospital visit by physician Xr [facility] Work Phone: Radiology Comment on above: Chronic neck pain [M 54.2, G89.29] Start: 04-02-2020 Emergency department patient visit JOSÉ [facility] Start: 03-11-2018 Patient encounter procedure Albert DawsonArmaan Miller Facility:[facility] Start: 02-11-2018 End: 02-12-2018 Patient encounter procedure Albert DawsonArmaan Kimyat Facility:[facility] Start: 01-06-2018 End: 01-07-2018 Patient encounter procedure Albert DawsonArmaan Kimyat Facility:[facility] Start: 01-02-2018 End: 01-03-2018 Patient encounter procedure Albert DawsonArmaan Kimyat Facility:[facility] Start: 12-12-2017 Patient encounter procedure Albert DawsonArmaan Kimyat Facility:[facility] Start: 12-09-2017 End: 12-09-2017 Patient encounter procedure HILARIO ZOLTAN Facility:[facility] Start: 11-20-2017 End: 11-20-2017 Patient encounter procedure HILARIO ZOLTAN Facility:[facility] Start: 11-14-2017 Patient encounter procedure Albert DawsonArmaan Kimyat Facility:[facility] Start: 10-28-2017 End: 10-28-2017 Patient encounter procedure HILARIO ZOLTAN Facility:[facility] Start: 10-24-2017 End: 10-24-2017 Patient encounter procedure Albert DawsonArmaan Kimyat Facility:[facility] Start: 10-08-2017 End: 10-14-2017 Evaluation and management of inpatient Ablert Miller Facility:[facility] Start: 10-03-2017 End: 10-05-2017 Evaluation and management of inpatient BRENNA BARBER Facility:[facility] Start: 08-23-2017 End: 08-23-2017 Emergency department patient visit JOYCE VERDIN Facility:[facility] Procedures Date Procedure Procedure Detail Performing Clinician Start: 08-10-2020 Radex spine cervical 4 or [address] APRN.BRINEYARD SUPERVISOR, DNP Work Phone: Plan of Treatment Date Care Activity Detail Author Start: 12-15-2023 Covid-19 Vaccine () Covid-19 Vaccine () [facility] Start: 12-15-2023 Influenza vaccination Influenza Vacc ine (#1) [facility] Start: 12-14-2021 Influenza vaccination INFLUENZA (#1) [facility] Start: 07-02-2021 SHINGRIX VACCINE (1 of 2) SHINGRIX VACCINE (1 of 2) [facility] Start: 04-15-2021 DEPRESSION ASSESSMENT DEPRESSION ASS ESSMENT [facility] Start: 10-05-2020 DIABETES SCREEN DIABETES SCREEN [facility] Start: 10-05-2020 Diabetes Screening Diabetes Screenin g [facility] Start: 07-02-2016 COLOGUARD (FIT-DNA) COLOGUARD (FIT-D NA) [facility] Start: 07-02-2016 Colonoscopy COLONOSCOPY [facility] Start: 07-02-2016 COLORECTAL CANCER SCREENING COLORECTAL CANCER SCREENING [facility] Start: 07-02-[address] COLONOGRAPHY [facility] Start: 07-02-2016 FECAL OCCULT BLOOD FECAL OCCULT BLOO D [facility] Start: 07-02-2016 [facility] Start: 07-02-2016 LIPID SCREEN LIPID SCREEN [facility] Start: 07-02-2016 Screening for malign ant neoplasm of colon [facility] Start: 07-02-2016 [facility] Start: 2011 Mammography MAMMOGRAM [facility] Start: 2011 Screening for malign ant neoplasm of breast Mammogram Screening [facility] Start: 07-02-2001 HPV TESTING HPV TESTING [facility] Start: 07-02-1992 PAP TESTING PAP TESTING [facility] Start: 07-02-1992 Screening for malign ant neoplasm of cervix Cervical Cancer Screening [facility] Start: 07-02-1990 Hepatitis B Vaccine (1 of 3 - 19+ 3-dose series) Hepatitis B Vaccine (1 of 3 - 19+ 3-dose series) [facility] Start: 07-02-1990 Urine microalbumin profile [facility] Start: 07-02-1989 Anxiety Screening Anxiety Screening [facility] Start: 07-02-1989 Depression Screening Depression Scre ening [facility] Start: 07-02-1989 HEPATITIS C SCREENING HEPATITIS C [facility] Start: 07-02-1989 Hepatitis C screening Hepatitis C [facility] Start: 07-02-1989 HIV SCREENING HIV SCREENING [facility] Start: 07-02-1989 HIV screening HIV Screening [facility] Start: 07-02-1977 PNEUMOCOCCAL (1 - PCV) PNEUMOCOCCAL (1 - PCV) [facility] Start: 07-02-1977 Pneumococcal vaccination Pneum ococcal Vaccine (1 of 2 - PCV) [facility] Start: 01-03-1972 COVID-19 VACCINE (#1) COVID-19 VACCI NE (#1) [facility] Start: 1971 HEPATITIS B (1 of 3 - 3-dose series) HEPATITIS B (1 of 3 - 3-dose series) [facility] End: 03-23-2023 Screening mammography bi 2-view breast inc cad RUBÉN SCREENING Radiology Routine Encounter for screening mammogram for breast cancer 1 Occurrences starting 02/21/2022 until 03/23/2023 [facility] Work Phone: Comment on above: 1 Occurrences starti ng 02/21/2022 [facility] Date Payer Category Payer Medicaid [id number] 2022 Self-pay 2021 Unknown [employer] PPO [id number] 2021-2022 [address] [place] [address] PPO [id number] 2021 Medicaid [id number] 1971 Unknown [id number] 1971 Unknown [id number] 1971 Unknown [id number] 1971 Unknown [id number] 1971 Unknown [id number] Self-pay [id number] Unknown [id number] Unknown [id number] Unknown [id number] Social History Date Type Detail Facility Start: 10-03-2017 [facility] History of tobacco use Cigarette Smoker [facility] Start: 10-03-2017 End: 03-23-2020 Cigarettes smoked current (pack per day) - Reported 1 [facility] Start: 10-03-2017 Tobacco use and exposure Smokeless tobacco non-user [facility] Start: 08-10-2020 End: 05-30-2021 Alcohol intake Current drinker of alcohol (finding) [facility] Start: 10-28-2017 [facility] Start: 1970 Sex Assigned At Not on file [facility] Start: 04-02-2023 Tobacco smoking status Heavy t obacco smoker (finding) [facility] Start: 1970 Sex Assigned At Female A [facility] Start: 03-23-2020 End: 08-10-2020 Tobacco use panel [facility] Adult Depression Screening Assessment 1 [facility] Start: 09-15-2022 Gender identity Identifies as female gender (finding) [facility] Start: 09-15-2022 Sexual orientation Heterosexual (campbell jahaira) [facility] Start: 07-11-2020 End: 08-10-2020 Exposure to SARS-CoV-2 (event) Not sure [facility] Functional Status Date Assessment Result Facility 04-02-2023 Functional Status Assistive Device None A [facility] 04-02-2023 Functional Status Standard Safet y ID band on, Call device within reach, Bed in low position, Wheels locked, Bedside Cart Locked, Safety level maintained [facility] Mental Status Date Assessment Result Facility 04-02-2023 Mental Status Orientation Oriented x 4 [facility] 04-02-2023 Mental Status [facility] Discharge instructions 04-02-2023 Note Date & Type Note Facility 04-02-2023 Hospital Discharg e instructions Patient Education 04/02/2023 19:56:23 Viral Syndrome (Adult) Viral Syndrome (Adult) A viral illness may cause a number of symptoms such as fever. Other symptoms depend on the part of the body that the virus affects. If it settles in your nose, throat, and lungs, it may cause cough, sore throat, congestion, runny nose, headache, earache and other ear symptoms, or shortness of breath. If it settles in your stomach and intestinal tract, it may cause nausea, vomiting, cramping, and diarrhea. Sometimes it causes generalized symptoms like aching all over, feeling tired, loss of energy, or loss of appetite. A viral illness usually lasts anywhere from several days to several weeks, but sometimes it lasts longer. In some cases, a more serious infection can look like a viral syndrome in the first few days of the illness. You may need another exam and additional tests to know the difference. Watch for the warning signs listed below for when to seek medical advice. Home care Follow these guidelines for taking care of yourself at home: If symptoms are severe, rest at home for the first 2 to 3 days. Stay away from cigarette smoke - both your smoke and the smoke from others. You may use [id number] acetaminophen or ibuprofen for fever, muscle aching, and headache, unless another medicine was prescribed for this. If you have chronic liver or kidney disease or ever had a stomach ulcer or gastrointestinal bleeding, talk with your healthcare provider before using these medicines. No one who is younger than 18 and ill with a fever should take aspirin. It may cause severe disease or . Your appetite may be poor, so a light diet is fine. Avoid dehydration by drinking 8 to 12, 8-ounce glasses of fluids each day. This may include water; orange juice; lemonade; apple, grape, and cranberry juice; clear fruit drinks; electrolyte replacement and sports drinks; and decaffeinated teas and coffee. If you have been diagnosed with a kidney disease, ask your healthcare provider how much and what types of fluids you should drink to prevent dehydration. If you have kidney disease, drinking too much fluid can cause it build up in the your body and be dangerous to your health. Jhnt-aou-hwyjtov remedies won't shorten the length of the illness but may be helpful for symptoms such as cough, sore throat, nasal and sinus congestion, or diarrhea. Don't use decongestants if you have high blood pressure. Follow-up care Follow up with your healthcare provider if you do not improve over the next week. Call 911 Call 911 if any of the following occur: Convulsion Feeling weak, dizzy, or like you are going to faint Chest pain, or more than mild shortness of breath When to seek medical advice Call your healthcare provider right away if any of these occur: Cough with lots of colored sputum (mucus) or blood in your sputum Chest pain, shortness of breath, wheezing, or trouble breathing Severe headache; face, neck, or ear pain Severe, constant pain in the lower right side of your belly (abdominal) Continued vomiting (can t keep liquids down) Frequent diarrhea (more than 5 times a day); blood (red or black color) or mucus in diarrhea Feeling weak, dizzy, or like you are going to faint Extreme thirst Fever of 100.4 F (38 C) or higher, or as directed by your healthcare provider [id number] [employer]. [address] [place] [address]. All rights reserved. This information is not intended as a substitute for professional medical care. Always follow your healthcare professional's instructions. Follow Up Care 04/02/2023 18:49:34 With:Follow up with primary care provider Address:Unknown When:3-5 days Comments:Follow-up as needed if symptoms or not improving.Quarantine at home until you get the results of the viral testing.Push fluids and rest.Vaporizer at bedside.Use Tylenol, Advil or Aleve for pain and fever as needed.Use syrk-szz-gorjasb cough and cold medicines for symptomatic relief as needed.Return to the ED if symptoms worsen. With:Call Physician Referral Address:Unknown When:3-5 days [facility] Emergency department Discharge summary 04-02-2023 Note Date & Type Note Facility 04-02-2023 Emergency department Discharge summary Discharge Instructions Thank you for allowing [facility] to assist you with your healthcare needs. The following is important discharge information regarding your hospital visit. Diagnosis from Today's Visit Back pain Headache What to Do Next Instructions from Your Care Team No qualifying data available. Post Acute Orders No qualifying data available. You Need to Schedule the Following Appointments Follow Up with Follow up with primary care provider When Within 3-5 days Why: Follow-up as needed if symptoms or not improving. Quarantine at home until you get the results of the viral testing. Push fluids and rest. Vaporizer at bedside. Use Tylenol, Advil or Aleve for pain and fever as needed. Use pllx-ehj-yquuqxr cough and cold medicines for symptomatic relief as needed. Return to the ED if symptoms worsen. Follow Up with Call Physician Referral When Within 3-5 days Allergies No Known Medication Allergies Medications Please ask your primary doctor or pharmacist before taking any other medication not listed, including over the counter drugs, herbal medications, vitamins and or supplements as they may interact with your home medications. Please take this list to your next doctor s visit. Bring all medications you take, including over the counter medications, herbals and other supplements with you to your doctor s visit. Patients and families are reminded to discard old lists and to update any records with all medication providers or retail pharmacies. Education Materials Viral Syndrome (Adult) A viral illness may cause a number of symptoms such as fever. Other symptoms depend on the part of the body that the virus affects. If it settles in your nose, throat, and lungs, it may cause cough, sore throat, congestion, runny nose, headache, earache and other ear symptoms, or shortness of breath. If it settles in your stomach and intestinal tract, it may cause nausea, vomiting, cramping, and diarrhea. Sometimes it causes generalized symptoms like aching all over, feeling tired, loss of energy, or loss of appetite. A viral illness usually lasts anywhere from several days to several weeks, but sometimes it lasts longer. In some cases, a more serious infection can look like a viral syndrome in the first few days of the illness. You may need another exam and additional tests to know the difference. Watch for the warning signs listed below for when to seek medical advice. Home care Follow these guidelines for taking care of yourself at home: If symptoms are severe, rest at home for the first 2 to 3 days. Stay away from cigarette smoke - both your smoke and the smoke from others. You may use sdeb-gyh-xmzoicf acetaminophen or ibuprofen for fever, muscle aching, and headache, unless another medicine was prescribed for this. If you have chronic liver or kidney disease or ever had a stomach ulcer or gastrointestinal bleeding, talk with your healthcare provider before using these medicines. No one who is younger than 18 and ill with a fever should take aspirin. It may cause severe disease or . Your appetite may be poor, so a light diet is fine. Avoid dehydration by drinking 8 to 12, 8-ounce glasses of fluids each day. This may include water; orange juice; lemonade; apple, grape, and cranberry juice; clear fruit drinks; electrolyte replacement and sports drinks; and decaffeinated teas and coffee. If you have been diagnosed with a kidney disease, ask your healthcare provider how much and what types of fluids you should drink to prevent dehydration. If you have kidney disease, drinking too much fluid can cause it build up in the your body and be dangerous to your health. Yifl-cdo-rjldcdb remedies won't shorten the length of the illness but may be helpful for symptoms such as cough, sore throat, nasal and sinus congestion, or diarrhea. Don't use decongestants if you have high blood pressure. Follow-up care Follow up with your healthcare provider if you do not improve over the next week. Call 911 Call 911 if any of the following occur: Convulsion Feeling weak, dizzy, or like you are going to faint Chest pain, or more than mild shortness of breath When to seek medical advice Call your healthcare provider right away if any of these occur: Cough with lots of colored sputum (mucus) or blood in your sputum Chest pain, shortness of breath, wheezing, or trouble breathing Severe headache; face, neck, or ear pain Severe, constant pain in the lower right side of your belly (abdominal) Continued vomiting (can t keep liquids down) Frequent diarrhea (more than 5 times a day); blood (red or black color) or mucus in diarrhea Feeling weak, dizzy, or like you are going to faint Extreme thirst Fever of 100.4 F (38 C) or higher, or as directed by your healthcare provider [phone] [employer]. [address] [place] [address], [place] [address]. All rights reserved. This information is not intended as a substitute for professional medical care. Always follow your healthcare professional's instructions. Additional Information VACCINATE! IT SAVES LIVES! Members of the community who have not yet received the COVID-19 vaccine and would like to receive it can visit one of [facility] vaccine clinics. There are many vaccine clinic locations within the [facility]. For locations and available times, please visit [email or web address].g [email or web address] It is important to note that some COVID mobile vaccine clinics are held outdoors and may be canceled in rainy or stormy conditions. To learn more about pediatric vaccinations (ages 5-11), we invite you to visit the [facility] webpage. [email or web address] [email or web address]-Qckduuldlqc-[email or web address] yklk-[email or web address]-Vqetidiuy.html To learn more about the COVID-19 vaccine, we invite you to visit the CDC website for a list of frequently asked questions. https://www.cdc.gov/coronavirus/2 019-ncov/vaccines/faq.html [email or web address] Patient Portal Access Instructions: Stay connected with your healthcare team and access your personal medical information anytime with the [email or web address] Patient Portal. If you would like a full copy of your medical records please contact the [facility] Medical Records Department Saturday through Saturday between 8a.m. and 4:30p.m. Please follow the directions below to access the portal: 1.Access the email account you provided upon registration to the hospital.2.Look for an invitation email from [facility].3.Open the email and access the invitation link: Accept Invitation to [facility]4.Fill in the required roth to create your account. Sign into [email or web address] with your username and password that you created in the above steps to stay up to date. You can then view a summary of results, a summary of your visits, and the ability to download your summaries to your computer or send the information securely to a physician. Remember that your healthcare information is confidential, so carefully consider who you will allow to register on the [email or web address] Patient Portal for access to your information. You can also access the [facility] Patient Portal on the [employer]. Simply click on Health Records under Health Data and then click on the [facility] logo. HOW TO SAFELY DISPOSE OF PRESCRIPTION MEDICATIONS Please use one of the following methods to safely dispose of your unused medications. 1.Use a drug disposal kit: the drug disposal pouch allows you to safely discard your old and unused drugs. Ask your nurse to give you one when you are discharged.2.Visit a local take-back location: Many local pharmacies and police departments have programs that collect old and unwanted prescription drugs. Call your local pharmacy or go to http://GIGAS.[employer]/3B3Zu7s to find one close to you.3.Make use of household items: Use cat litter or old coffee grounds to dispose medications if other options are not available. Mix your drugs with these household products, seal them in an airtight container and throw it into the garbage. Call [facility]: [phone] to be sure your drugs can be disposed of in this way. Some medicines may require a different approach.4.Never flush your medications down the toilet. IF YOU HAVE BEEN PRESCRIBED AN OPIOIDS FOR PAIN If you have been prescribed an opioid (such as hydrocodone, oxycodone or morphine), it is critical to understand the possible side effects and risks of opioid pain medications. Even when taken as directed, opioids can have several side effects including: Tolerance, meaning you might need to take more of a medication for the same pain relief. Nausea, vomiting and/or constipation. Sleepiness, dizziness, dry mouth, confusion, depression or itching. Physical dependence, meaning you have withdrawal symptoms when a medication is stopped ? this can develop within a few days. KNOW YOUR RESPONSIBILITIES It is important to know exactly how much and how often to take the opioid pain medications you are prescribed. Never take opioids in higher amounts or more often than prescribed. Do not combine opioids with alcohol or other drugs that cause drowsiness, such as benzodiazepines, also known as benzos, including diazepam and alprazolam, muscle relaxants or sleep aids. Never sell or share prescription opioids. This is illegal. Store opioids in a secure place and out of reach of others (including children, family, friends and visitors). The last page(s) of this document has been signed and retained as a CHART COPY Signatures Patient Education Materials Viral Syndrome (Adult) Medication Leaflets My discharge plan and instructions have been reviewed and explained to me and I,KINYARWANDA, SHENA understand my current condition and have read and understand these discharge instructions. I have received a written copy of the plan/instructions. If I have questions, I am aware that I should contact my doctor. 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 Spoke with pt and she was not aware [address] was no longer here. Transferred to accounts officer to get an apt to establish care with a provider. Pt has been scheduled for 03-10-22. Pt using medication for neck. 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 Patient has been identified by name and date of : Yes Patient phones for refill(s): Requested Prescriptions Pending Prescriptions Disp Refills cyclobenzaprine (FLEXERIL) 5 mg tablet [Pharmacy Med Name: Cyclobenzaprine HCl 5 MG Oral Tablet] 45 tablet 0 Sig: Take 1 tablet by mouth three times daily as needed Date of last office visit in primary care: 08/10/20 next apt 03/10/22 Last 2 Encounter Wt Readings: Date: Wt: 05/30/2021 92.6 kg (204 lb 3.2 oz) 08/10/2020 84.8 kg (187 lb) Previous labs/tests for medication: Not applicable Thank you. Dorota Baker LPN documented in this encounter [facility] History of Present illness Narrative 08-10-2020 Jodee Alarcon RT(R) - 08/10/2020 10:20 AM EDT Note Date & Type Note Facility 08-10-2020 History of Presen t illness Narrative Radiology Service Progress Note PATIENT NAME: Tarsha Byers DATE OF SERVICE: August 10, 2020 TIME: 10:37 AM PATIENT IDENTITY VERIFICATION COMPLETED USING TWO (2) IDENTIFIERS: Name and Date of confirmed by patient verbally. FALL SCREENING: Has the patient had 2 falls in the last year or 1 fall with injury or currently using an Ambulatory Assistive Device (Walker, Cane, Wheelchair, Crutches, etc.)? No PATIENT GENDER DATA: Female. status: : No status: NO. PATIENT RELEVANT IMPLANT DATA REVIEWED: Not Applicable RADIOLOGY DEPARTMENT: General X-ray: Exam(s) Completed: Spine X-Ray(s): Cervical AP / LAT / OBL and Thoracic PERIPHERAL IV DATA: Not applicable SIGNED BY: RT Rakan(R) August 10, 2020 10:37 AM documented in this encounter [facility] Evaluation + Plan note Note Date & Type Note Facility Evaluation + Plan note No data available for this section [facility] Evaluation note Note Date & Type Note Facility Evaluation note Diagnosis Chronic neck pain Cervicalgia Cervical radiculopathy Brachial neuritis or radiculitis nos documented in this encounter [facility] Evaluation note Note Date & Type Note Facility Evaluation note Diagnosis Encounter for screening mammogram for breast cancer documented in this encounter [facility] Evaluation note Note Date & Type Note Facility Evaluation note Diagnosis Chronic neck pain Cervicalgia Cervical radiculopathy Brachial neuritis or radiculitis nos documented in this encounter [facility] Reason for referral (narrative) Diagnostic Procedure Only (Routine) - Pending Review Note Date & Type Note Facility Reason for referral (narrati ve) Specialty Diagnoses / Procedures Referred By Patrick vidal Referred To Contact [facility] Diagnoses Encounter for screening mammogram for breast cancer Procedures RUBÉN SCREENING SCREENING MAMMOGRAPHY BI 2-VIEW BREAST INC Smith Morrison APRN.CNP, DNP [address] [place] [address] [facility] [address] [place] [address] Referral ID Status Reason Start Date Expiration Date Visits Requested Visits Authorized [id number] Pending Review Auto-Generat ed Referral 02/21/2022 03/23/2023 1 1 [facility] Summary Purpose Family History No Family History Records FoundNo Family History Records FoundNo Family History Records FoundNo Family History Records FoundNo Family History Records Found No data available for this section No Family History Records FoundNo Family History Records FoundNo Family History Records Found Advance Directives No Advanced Directives Records FoundDocuments on File Type Date Recorded 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 Advance Directive(s) 10/18/2017 10:36 AM Advance Directive(s) 10/15/2017 9:29 AM Documents on File Type Date Recorded 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 Advance Directive(s) 10/18/2017 10:36 AM Advance Directive(s) 10/15/2017 9:29 AM Additional Source Comments INFORMATION SOURCE (unrecogn ized section and content) DATE CREATED AUTHOR 10/01/2017 [facility] DATE CREATED AUTHOR AUTHOR'S ORGANIZ ATION 04/25/2018 [facility] DATE CREATED AUTHOR AUTHOR'S ORGANIZ ATION 12/23/2019 [facility] DATE CREATED AUTHOR AUTHOR'S ORGANIZ ATION 04/03/2020 [facility] DATE CREATED AUTHOR AUTHOR'S ORGANIZ ATION 02/26/2023 [facility] DATE CREATED AUTHOR AUTHOR'S ORGANIZ ATION 09/19/2023 [facility] ([place]) DATE CREATED AUTHOR AUTHOR'S ORGANIZ ATION 05/12/2024 [facility] DATE CREATED AUTHOR AUTHOR'S ORGANIZ ATION 05/12/2024 [facility] Source Comments (unrecognize d section and content) In the event this informatio n is protected by the Federal Confidentiality of Alcohol and Drug Abuse Patient Records regulations: The Federal rules restrict any use of the information to criminally investigate or prosecute any alcohol or drug abuse patient.[facility] the event this information is protected by the Federal Confidentiality of Alcohol and Drug Abuse Patient Records regulations: The Federal rules restrict any use of the information to criminally investigate or prosecute any alcohol or drug abuse patient.[facility] the event this information is protected by the Federal Confidentiality of Alcohol and Drug Abuse Patient Records regulations: The Federal rules restrict any use of the information to criminally investigate or prosecute any alcohol or drug abuse patient.[facility] Reason for Visit (unrecogniz ed section and content) Reason Comments Refill Request Care Teams (unrecognized sec tion and content) Personal Health Coach Relationship Specialty Start Date End Date [address] APRN.CNP, DNP [address] [place], [place] [id number] PCP - General Family Medicine 02/20/21 Personal Health Coach Relationship Specialty Start Date End Date [address] APRN.CNP, DNP [address], [place] [phone] PCP - General Family Medicine 02/20/21 FOR RECORDS PERTAINING TO PATIENTS WHO ARE OR HAVE BEEN ENROLLED IN A CHEMICAL DEPENDENCY/SUBSTANCEABUSE PROGRAM, SOME INFORMATION MAY BE OMITTED. This clinical summary was aggregated from multiple sources. Caution should be exercised in using it in the provision of clinical care. This summary normalizes information from multiple sources, and as a consequence, information in this document may materially change the coding, format and clinical context of patient data. In addition, data may be omitted in some cases. CLINICAL DECISIONS SHOULD BE BASED ON THE PRIMARY CLINICAL RECORDS. [facility] [employer] [facility]. provides no warranty or guarantee of the accuracy or completeness of information in this document.
--- NOTE | 2025-04-05 18:51 | CM.ED ---
Social Work Reason for visit: No PCP Patient verified that she does not currently have a PCP. [facility] provider list given to patient. No further needs at this time. Gilda Clement, MASONRY CONTRACTOR ADMINISTRATOR, TIMBER TREATING TANK OPERATOR
== END 2025-04-05 12:47 | disposition home or self-care (01) ==
PROVIDERS: Emergency Provider Surgery; Visit Provider Surgery
DX: B34.9 Viral infection, unspecified (principal); F17.290 Nicotine dependence, other tobacco product, uncomplicated; R06.2 Wheezing
CPT/HCPCS: 71046; 80048; 85025; 87631; 93005; 94640; 96360; 96361; 99284